=== PATIENT | female | born 1995 | race Caucasian/White ===

== ENCOUNTER → 2020-07-19 | Day surgery (SDC) | payer OTHER ==
[~2020-07-19] MED LIST: HYDROCODON-ACE1 EAC6 PO; IBUPROFEN600 MG PO
[2020-07-19 08:13] LABS: HEMOGLOBIN 12.8 gm/dl (12.3-15.3); RED BLOOD COUNT 4.4 M/UL (4.00-5.10); WHITE BLOOD COUNT 6.1 K/UL (4.5-11.0)
== END | disposition home or self-care (01) ==
LOC: OR 06:49
PROVIDERS: Obstetrics & Gynecology
DX: O02.1 Missed abortion (principal); Z83.3 Family history of diabetes mellitus; Z87.891 Personal history of nicotine dependence; Z20.822 Contact with and (suspected) exposure to COVID-19; Z3A.08 8 weeks gestation of pregnancy
CPT/HCPCS: 36415; 81001; 85025; 86850; 86900; 86901; 87635; J1100; J2001; J2250; J2405; J2704; J2795; J3010; J7120

== ENCOUNTER 2020-07-23 10:43 | Emergency (ER) | payer OTHER ==
[2020-07-23 12:20] LABS: HEMOGLOBIN 12.3 gm/dl (12.3-15.3); RED BLOOD COUNT 4.19 M/UL (4.00-5.10); WHITE BLOOD COUNT 6.2 K/UL (4.5-11.0)
[2020-07-23 12:38] LABS: BUN/CREATININE RATIO 13 (0-10)
== END 2020-07-23 14:05 | disposition home or self-care (01) ==
LOC: ER1 10:43
PROVIDERS: Physician Assistant
DX: N93.9 Abnormal uterine and vaginal bleeding, unspecified (principal); F17.290 Nicotine dependence, other tobacco product, uncomplicated
CPT/HCPCS: 76830; 80053; 81001; 85025; 99284

== ENCOUNTER 2021-05-15 18:42 | Outpatient (CLI) | payer OTHER | END 2021-05-15 21:34 | disposition home or self-care (01) | LOC: GENOP 18:42 | DX: O99.891 Other specified diseases and conditions complicating pregnancy (principal); R10.9 Unspecified abdominal pain; Z3A.30 30 weeks gestation of pregnancy | CPT/HCPCS: 81001; 82731; G0463 ==

== ENCOUNTER 2021-06-26 22:17 | Outpatient (CLI) | payer OTHER | END 2021-06-27 00:44 | disposition home or self-care (01) | LOC: GENOP 22:17 | DX: O47.03 False labor before 37 completed weeks of gestation, third trimester (principal); Z3A.36 36 weeks gestation of pregnancy | CPT/HCPCS: G0463 ==

== ENCOUNTER 2021-07-17 23:18 | Outpatient (CLI) | payer OTHER ==
[2021-07-18] MEDS ORDERED: EXPECTA PRENAT1 EACH PO (13:50)
[2021-07-18] MEDS ORDERED: COLACE 100MG C100 MG PO (21:24)
[2021-07-18] MEDS ORDERED: IBUPROFEN800 MG PO (21:24)
[2021-07-18] MEDS ORDERED: HYDROCODON-ACE1 EAC4 PO (21:24)
== END 2021-07-18 07:30 | disposition home or self-care (01) ==
LOC: GENOP 23:18
DX: O47.1 False labor at or after 37 completed weeks of gestation (principal); O99.891 Other specified diseases and conditions complicating pregnancy; R10.30 Lower abdominal pain, unspecified; R25.2 Cramp and spasm; Z3A.39 39 weeks gestation of pregnancy
CPT/HCPCS: 59025; 81001; 96360; 96361

== ENCOUNTER 2021-07-18 12:40 | Inpatient (IN) | payer OTHER ==
[~2021-07-18] VITALS: Ht 165.1 cm; Wt 74.8 kg
[2021-07-18] MEDS ORDERED: EXPECTA PRENAT1 EACH PO (13:50)
[2021-07-18 14:24] LABS: HEMOGLOBIN 13.6 gm/dl (12.3-15.3); RED BLOOD COUNT 4.54 M/UL (4.00-5.10); WHITE BLOOD COUNT 18.2 K/UL (4.5-11.0)
[2021-07-18] MEDS ORDERED: COLACE 100MG C100 MG PO (21:24)
[2021-07-18] MEDS ORDERED: IBUPROFEN800 MG PO (21:24)
[2021-07-18] MEDS ORDERED: HYDROCODON-ACE1 EAC4 PO (21:24)
[2021-07-19 06:22] LABS: HEMOGLOBIN 12.1 gm/dl (12.3-15.3)
== END 2021-07-20 14:52 | disposition home or self-care (01) | DRG 807 ==
LOC: GENOP 12:40 → OB 13:22
PROVIDERS: ADMIT Obstetrics & Gynecology
PROC: 10E0XZZ Delivery of Products of Conception, External Approach (ICD-10-PCS; principal; 2021-07-20)
PROC: 10D07Z8 Extraction of Products of Conception, Other, Via Natural or Artificial Opening (ICD-10-PCS; 2021-07-20)
DX: O77.0 Labor and delivery complicated by meconium in amniotic fluid (principal); Z37.0 Single live birth; Z20.822 Contact with and (suspected) exposure to COVID-19; Z3A.39 39 weeks gestation of pregnancy; Z83.3 Family history of diabetes mellitus; O70.0 First degree perineal laceration during delivery
CPT/HCPCS: 36415; 81001; 82800; 85014; 85018; 85025; J2590; J7120; U0002

== ENCOUNTER 2022-01-03 09:35 | Emergency (ER) | payer OTHER ==
[~2022-01-03 09:35] MED LIST changes: +COLACE 100MG C100 MG PO; +EXPECTA PRENAT1 EACH PO; +HYDROCODON-ACE1 EAC4 PO; +IBUPROFEN800 MG PO
[2022-01-03 10:07] LABS: HEMOGLOBIN 13.6 gm/dl (12.3-15.3); RED BLOOD COUNT 4.9 M/UL (4.00-5.10); WHITE BLOOD COUNT 6.6 K/UL (4.5-11.0)
[2022-01-03 10:29] LABS: BUN/CREATININE RATIO 14 (0-10)
[2022-01-06 23:11] LABS: CHLAMYDIA TRACHOMATIS, NAA Negative (Negative); NEISSERIA GONORRHOEAE, NAA Negative (Negative)
== END 2022-01-03 13:30 | disposition home or self-care (01) ==
LOC: ER1 09:35
PROVIDERS: Physician Assistant
DX: B37.3 Candidiasis of vulva and vagina (principal); F17.290 Nicotine dependence, other tobacco product, uncomplicated
CPT/HCPCS: 80053; 81001; 83690; 84703; 85025; 86140; 87086; 99284; Q9967